=== PATIENT | female | born 2000 | race Caucasian/White ===

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

== ENCOUNTER → 2021-05-11 | Outpatient (REF) | payer MEDICAID, OTHER | LOC: M SFHCADAM 15:56 | PROVIDERS: ATTEND Physician Assistant | DX: R07.0 Pain in throat (principal); R05 Cough; Z20.828 Contact with and (suspected) exposure to other viral communicable diseases | CPT/HCPCS: G0463; U0003 ==

== ENCOUNTER → 2021-08-03 | Outpatient (REF) | payer OTHER | LOC: M LAB REF 09:41 | PROVIDERS: ATTEND Physician Assistant | DX: J02.9 Acute pharyngitis, unspecified (principal) ==

== ENCOUNTER → 2021-10-07 | Outpatient (REF) | payer OTHER | LOC: M SFHCADAM 16:24 | PROVIDERS: ATTEND Physician Assistant | DX: J02.9 Acute pharyngitis, unspecified (principal); Z11.52 Encounter for screening for COVID-19 ==

== ENCOUNTER → 2022-02-03 | Outpatient (REF) | payer MEDICAID | LOC: M LAB REF 16:10 | PROVIDERS: ATTEND Physician Assistant Medical | DX: R50.9 Fever, unspecified (principal); J02.9 Acute pharyngitis, unspecified ==

== ENCOUNTER → 2023-01-03 | Outpatient (REF) | payer OTHER | LOC: M LAB REF 21:33 | PROVIDERS: ATTEND Physician Assistant Medical | DX: J02.9 Acute pharyngitis, unspecified (principal) ==

== ENCOUNTER → 2023-07-26 | Outpatient (REF) | payer OTHER | LOC: M LAB REF 20:55 | PROVIDERS: ATTEND Physician Assistant | DX: J02.9 Acute pharyngitis, unspecified (principal) ==

== ENCOUNTER → 2024-01-05 | Outpatient (REF) | payer OTHER | LOC: M LAB REF 16:04 | PROVIDERS: ATTEND Physician Assistant | DX: J02.9 Acute pharyngitis, unspecified (principal) ==

== ENCOUNTER → 2024-04-03 | Outpatient (REF) | LOC: M EMP 11:31 | PROVIDERS: ATTEND Family Medicine | DX: Z20.822 Contact with and (suspected) exposure to COVID-19 (principal) ==

== ENCOUNTER → 2024-04-24 | Outpatient (CLI) | payer OTHER | LOC: M SOG 07:57 | PROVIDERS: ATTEND Physician Assistant | DX: M25.512 Pain in left shoulder (principal) ==

== ENCOUNTER → 2025-06-21 | Outpatient (CLI) | payer OTHER ==
[2025-06-21 13:50] LABS: PLATELET COUNT, AUTOMATED 227 10^3/uL (150-450)
[2025-06-21 14:03] LABS: ALT/SGPT 17 U/L (7.0-40); AST/SGOT 19 U/L (<34); CALCIUM LEVEL 9.0 MG/DL (8.5-10.1); CARBON DIOXIDE LEVEL 24 MMOL/L (20-31); CHLORIDE LEVEL 106 MMOL/L (98-107); CREATININE FOR GFR 0.74 MG/DL (0.55-1.30); GLOMERULAR FILTRATION RATE > 90.0 (>60); POTASSIUM SERUM 4.2 MMOL/L (3.5-5.1); SODIUM LEVEL 140 MMOL/L (136-145)
[2025-06-21 14:04] LABS: FREE T4 0.98 NG/DL (0.89-1.76)
== END ==
LOC: M PLALAB 10:51
DX: Z13.0 Encounter for screening for diseases of the blood and blood-forming organs and certain disorders involving the immune mechanism (principal); Z13.1 Encounter for screening for diabetes mellitus; Z13.29 Encounter for screening for other suspected endocrine disorder

== ENCOUNTER → 2025-07-04 | Outpatient (REF) | payer OTHER | LOC: M LAB REF 12:28 | PROVIDERS: ATTEND Physician Assistant | DX: B34.9 Viral infection, unspecified (principal) ==

== ENCOUNTER → 2025-08-20 | Outpatient (RCR) | LOC: M EMPSSV 07-24 14:23 | PROVIDERS: ATTEND Family Medicine | DX: Z20.828 Contact with and (suspected) exposure to other viral communicable diseases (principal) ==